=== PATIENT | male | born 1995 | race Two or more races ===

== ENCOUNTER 2019-02-19 17:47 | Emergency (ER) | payer SELFPAY ==
[~2019-02-19] VITALS: Ht 157.5 cm; Wt 57.2 kg
--- NOTE | 2019-02-19 17:47 | NUR ---
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 TO ER BED 4, HOOKED TO MONITOR, PROVIDED W WARM BLANKET, DR KAHN AT BEDSIDE
[2019-02-19 18:24] VITALS: BP 142/67
--- NOTE | 2019-02-19 18:24 | NUR ---
Patient discharged to home in stable condition. Written and verbal after care instructions given. Patient verbalizes understanding of instruction.
== END 2019-02-19 18:25 | disposition home or self-care (01) ==
LOC: ER 17:54
DX: G51.0 Bell's palsy (principal)